=== PATIENT | female | born 1940 | race Caucasian/White ===

== ENCOUNTER 2016-09-10 12:49 | Emergency (ER) | payer OTHER, BC ==
[2016-09-10 13:01] VITALS: TEMP 98; BMI 23.0
--- NOTE | 2016-09-10 13:15 | PDOC ---
History of Present Illness - General History Source: Patient Exam Limitations: No Limitations - History of Present Illness Initial Comments: 09/10/16 13:52 The patient is a 76-year-old female, with a significant past medical history of HTN, who presents to the ED with 2 weeks of shortness of breath and coughing. Pt was placed on ampicillin a month ago for a tooth infection. Pt then developed C diff and was placed on vancomycin; pt has about 20 tablets left. She developed a cough two weeks ago that was productive of brown/bloody sputum. She visited her PCP a week ago and was given a 5-day course of prednisone with no relief of her symptoms. Pt just states that her sputum is now clear and she has about 6-7 episodes a day. The patient denies any fever, chills, nausea, vomiting, diarrhea, or abdominal pain. She denies any headache. No recent travel or sick contacts. PCP: Dr. Ta <Denise Chao - Last Filed: 09/10/16 17:11> <Ander Macias - Last Filed: 09/10/16 17:36> - General Chief Complaint: Shortness of Breath Stated Complaint: SOB Time Seen by Provider: 09/10/16 13:15 Past History <Denise Chao - Last Filed: 09/10/16 17:11> - Past Medical History HTN: Yes - Surgical History Appendectomy: Yes - Psycho/Social/Smoking Cessation Hx Anxiety: No Suicidal Ideation: No Smoking History: Former smoker Have you smoked in the past 12 months: No Information on smoking cessation initiated: No Hx Alcohol Use: No Substance Use Type: None <Ander Macias - Last Filed: 09/10/16 17:36> - Past Medical History Allergies/Adverse Reactions: Allergies Allergy/AdvReac Type Severity Reaction Status Date / Time No Known Allergies Allergy Verified 09/10/16 12:58 Home Medications: Ambulatory Orders Albuterol Sulfate Inhaler - [Ventolin HFA Inhaler -] 1 - 2 inh PO QID #1 inhaler 09/10/16 Levofloxacin [Levaquin -] 500 mg PO DAILY #7 tablet 09/10/16 Methylprednisolone [Medrol Dose [place]] 4 mg PO ASDIR #21 tablet 09/10/16 Review of Systems - Review of Systems Able to Perform ROS?: Yes Comments:: 09/10/16 13:53 GENERAL/CONSTITUTIONAL: No fever or chills. No weakness. HEAD, EYES, EARS, NOSE AND THROAT: No change in vision. No ear pain or discharge. No sore throat. CARDIOVASCULAR: No chest pain. +shortness of breath. RESPIRATORY: No, wheezing, or hemoptysis. +cough SKIN: No rash GASTROINTESTINAL: No nausea, vomiting, diarrhea or constipation. GENITOURINARY: No dysuria, frequency, or change in urination. MUSCULOSKELETAL: No joint or muscle swelling or pain. No neck or back pain. NEUROLOGIC: No headache, vertigo, loss of consciousness, or change in strength/ sensation. ENDOCRINE: No increased thirst. No abnormal weight change. HEMATOLOGIC/LYMPHATIC: No anemia, easy bleeding, or history of blood clots. ALLERGIC/IMMUNOLOGIC: No hives or skin allergy. <Denise Chao - Last Filed: 09/10/16 17:11> *Physical Exam - Vital Signs Last Vital Signs Temp Pulse Resp BP Pulse Ox 98 F 86 19 158/80 97 09/10/16 12:58 09/10/16 12:58 09/10/16 12:58 09/10/16 12:58 09/10/16 12:58 - Physical Exam Comments: 09/10/16 13:54 GENERAL: Awake, alert, and fully oriented, in no acute distress HEAD: No signs of trauma ENT: Auricles normal inspection, hearing grossly normal, nares patent, oropharynx clear EYES: PERRLA, EOMI, sclera anicteric, conjunctiva clear without exudates. Moist mucosa. NECK: Normal ROM, supple, no lymphadenopathy, JVD, or masses LUNGS: Breath sounds equal, clear to auscultation bilaterally. No wheezes, and no crackles HEART: Regular rate and rhythm, normal S1 and S2, no murmurs, rubs or gallops ABDOMEN: Soft, nontender, normoactive bowel sounds. No guarding, no rebound. No masses EXTREMITIES: Normal range of motion, no edema. No clubbing or cyanosis. No cords, erythema, or tenderness NEUROLOGICAL: Cranial nerves II through XII grossly intact. Normal speech, normal gait SKIN: Warm, Dry, normal turgor, no rashes or lesions noted <Denise Chao - Last Filed: 09/10/16 17:11> - Vital Signs Last Vital Signs Temp Pulse Resp BP Pulse Ox 98 F 86 19 158/80 97 09/10/16 12:58 09/10/16 12:58 09/10/16 12:58 09/10/16 12:58 09/10/16 12:58 <Ander Macias - Last Filed: 09/10/16 17:36> ED Treatment Course - LABORATORY CBC & Chemistry Diagram: 09/10/16 13:55 09/10/16 13:55 <Denise Chao - Last Filed: 09/10/16 17:11> - LABORATORY CBC & Chemistry Diagram: 09/10/16 13:55 09/10/16 13:55 <Ander Macias - Last Filed: 09/10/16 17:36> Medical Decision Making - Medical Decision Making 09/10/16 17:01 Dr. Ta was paged and notified via phone service. Case was discussed at 17:[address] Ta agreed to treat the patient as outpatient. He will see the patient tomorrow morning. <Denise Chao - Last Filed: 09/10/16 17:11> *DC/Admit/Observation/Transfer - Attestations Scribe Attestion: 09/10/16 13:55 Documentation prepared by Denise Chao, acting as director medical affairs for Ander Macias MD. <Denise Caho - Last Filed: 09/10/16 17:11> - Discharge Dispostion Admit: No - Attestations Physician Attestion: 09/10/16 13:15 I, Dr. Ander Macias, attest that this document has been prepared under my direction and personally reviewed by me in its entirety. I further attest, that it accurately reflects all work, treatment, procedures and medical decision -making performed by me. <Ander Macias - Last Filed: 09/10/16 17:36> Diagnosis at time of Disposition: Pneumonia Qualifiers: Pneumonia type: due to unspecified organism Laterality: right Lung location: lower lobe of lung Qualified Code(s): J18.1 - Lobar pneumonia, unspecified organism - Discharge Dispostion Disposition: HOME Condition at time of disposition: Good - Prescriptions Prescriptions: Levofloxacin [Levaquin -] 500 mg PO DAILY #7 tablet Methylprednisolone [Medrol Dose [place]] 4 mg PO ASDIR #21 tablet Albuterol Sulfate Inhaler - [Ventolin HFA Inhaler -] 1 - 2 inh PO QID #1 inhaler - Referrals Referrals: Jason Ta MD [Primary Care Provider] - - Patient Instructions Printed Discharge Instructions: Pneumonia-Adult, DI for Pneumonia -- Adult Additional Instructions: Mrs Woo Looks like you have an early pneumonia on your CXR. Your medications were sent to your pharmacy, antibiotic, inhaler and steroid. I did speak to Dr. Long and he will see you on Wednesday and of course you can call him tomorrow if need be. Return to us if worse in any way. I hope you are better soon. Best- Dr. Ander Macias
[2016-09-10] MEDS ORDERED: ALBUTEROL SO4 2.5/IPRATROPIUM 0.5 INH SOL 3 ML VIAL.NEB. NEB ONE ×2 (13:45→14:15)
[2016-09-10] MEDS ORDERED: ALBUTEROL SO4 0.083% IH SOL 2.5 MG/3 ML VIAL.NEB. NEB ONE (13:45)
[2016-09-10 14:29] LABS: BASOPHIL 1.3 % (0-2.0); EOSINOPHIL 3.5 % (0-4.5); MCH 31.1 pg (25.7-33.7); MCHC 33.7 g/dl (32.0-36.0); MEAN CELL VOLUME 92.3 fl (80-96); NEUTROPHILS 55.6 % (42.8-82.8); PLATELET COUNT 317 K/MM3 (134-434); RDW 13.2 % (11.6-15.6); WHITE BLOOD COUNT 8.5 K/mm3 (4.0-10.0)
[2016-09-10 14:40] LABS: INR 0.95 (0.82-1.09); PROTHROMBIN TIME (PATIENT) 10.4 SEC (9.98-11.88)
[2016-09-10 14:53] LABS: ALBUMIN 3.2 g/dl (3.4-5.0); ANION GAP 10 (8-16); CALCIUM 9.3 mg/dL (8.5-10.1); CO2 27 mmol/L (21-32); GLUCOSE,RANDOM 94 mg/dL (74-106)
[2016-09-10 14:58] LABS: ALK PHOS 93 U/L (45-117); BILIRUBIN,TOTAL 0.8 mg/dL (0.2-1.0); CREATININE 0.7 mg/dL (0.55-1.02); SGOT/AST 29 U/L (15-37); SGPT/ALT 31 U/L (12-78); TOT PROT 6.5 g/dl (6.4-8.2)
[2016-09-10 16:24] LABS: ARTERIAL BLD GAS O2 SATURATION 95.9 % (90-98.9); ARTERIAL BLOOD GAS BASE EXCESS 1.6 meq/l (-2-2); ARTERIAL BLOOD GAS HCO3 23.9 meq/L (22-26); ARTERIAL BLOOD GAS PO2 74.6 mmHg (70-100)
[2016-09-10 16:26] LABS: ALLENS TEST POSITIVE; ART PUNCT SITE RIGHT RADIAL; METHEMOGLOBIN 0.5 % (0.4-1.5); PT. ON O2? NO; TYPE OF O2 ROOM AIR
[2016-09-10] MEDS ORDERED: LEVOFLOXACIN 750 MG IVPB 150 ML IVPB ONE ×2 (16:42→17:27)
[2016-09-10 17:01] LABS: ARTERIAL BLOOD GAS pH 7.49 (7.35-7.45)
[2016-09-10 19:47] VITALS: BP 133/74; PULSE 77
== END 2016-09-10 19:40 | disposition home or self-care (01) ==
LOC: JER 12:49
PROC: 3E0F7GC Introduction of Other Therapeutic Substance into Respiratory Tract, Via Natural or Artificial Opening (ICD-10-PCS; principal; 2016-09-10)
PROC: 3E0F7GC Introduction of Other Therapeutic Substance into Respiratory Tract, Via Natural or Artificial Opening (ICD-10-PCS; 2016-09-10)
PROC: 3E03329 Introduction of Other Anti-infective into Peripheral Vein, Percutaneous Approach (ICD-10-PCS; 2016-09-10)
DX: J18.1 Lobar pneumonia, unspecified organism (principal); I10 Essential (primary) hypertension
CPT/HCPCS: 36415; 36600; 71020-TC; 80053; 82375; 82803; 83050; 85025; 85610; 99283-25

== ENCOUNTER 2016-12-11 16:31 | Emergency (ER) | payer OTHER, BC ==
[2016-12-11 16:49] VITALS: BP 156/80; PULSE 76; TEMP 98; BMI 30.9
--- NOTE | 2016-12-11 17:51 | PDOC ---
History of Present Illness - General Chief Complaint: Injury Stated Complaint: injury Time Seen by Provider: 12/11/16 17:41 History Source: Patient Exam Limitations: No Limitations - History of Present Illness Initial Comments: 12/11/16 18:22 Chief complaint: Fall complaining of pain and left hand or wrist with swelling and left rib area anteriorly sent by her primary care provider for History of present illness: Patient is a 76 year old female with a history of hypertension, GERD, her arms stretched out ordered in front of her. Patient reports having pain to her left dorsal hand and wrist with swelling and bruising of dorsal left hand. Patient also reports left anterior rib pain worse with deep breaths or sudden movements. Patient denies any shortness of breath. Patient denies any loss of consciousness or head injury. Patient took Advil at 3 PM. Patient denies any numbness of her left hand or arm. Patient has to left palm. Patient reports being up-to-date with tetanus. 12/11/16 18:25 Occurred: reports: yesterday Severity: reports: moderate Pain Location: reports: other (left anterior lower rib), upper extremity (left wrist/hand, ) Method of Injury: Yes: fall Modifying Factors: improves with: pain medication (advil) Past History - Past Medical History Allergies/Adverse Reactions: Allergies Allergy/AdvReac Type Severity Reaction Status Date / Time No Known Allergies Allergy Verified 12/11/16 16:49 Home Medications: Ambulatory Orders Albuterol Sulfate Inhaler - [Ventolin HFA Inhaler -] 1 - 2 inh PO QID #1 inhaler 09/10/16 Metoprolol Succinate [Toprol Xl] 50 mg PO ASDIR 12/11/16 Ranitidine [Zantac -] 150 mg PO DAILY 12/11/16 Rosuvastatin [Crestor -] 10 mg PO DAILY 12/11/16 HTN: Yes - Surgical History Appendectomy: Yes - Suicide/Smoking/Psychosocial Hx Smoking History: Never smoked Have you smoked in the past 12 months: No Information on smoking cessation initiated: No Hx Alcohol Use: No Drug/Substance Use Hx: No Substance Use Type: None Review of Systems - Review of Systems Able to Perform ROS?: Yes Constitutional: No: Symptoms Reported HEENTM: No: Symptoms Reported Respiratory: No: Symptoms reported Cardiac (ROS): No: Symptoms Reported ABD/GI: No: Symptoms Reported : No: Symptoms Reported Musculoskeletal: Yes: Joint Pain (left wrist, dorsal hand, left anterior lower rib pain ), Joint Swelling (left dorsal hand) Integumentary: Yes: Bruising (left dorsal hand ) Neurological: Yes: Symptoms reported *Physical Exam - Vital Signs Last Vital Signs Temp Pulse Resp BP Pulse Ox 98.0 F 76 18 156/80 100 12/11/16 16:46 12/11/16 16:46 12/11/16 16:46 12/11/16 16:46 12/11/16 16:46 - Physical Exam General Appearance: Yes: Appropriately Dressed Neck: negative: Tender, Rigidity, Tender lateral, Tender midline Respiratory/Chest: positive: Lungs Clear, Normal Breath Sounds. negative: Chest Tender, Respiratory Distress Cardiovascular: positive: Regular Rhythm, Regular Rate, S1, S2 Comments:: 12/11/16 18:15 left radial pulse 4 + Musculoskeletal: positive: Normal Inspection, Other (left anterior proximal ribs ). negative: CVA Tenderness, CVA Tenderness (R), CVA Tenderness (L), Vertebral Tenderness Extremity: positive: Normal Capillary Refill, Tender (left dorsal hand), Swelling (left dorsal hand). negative: Normal Inspection, Normal Range of Motion (slightly decreased range of motion left mcp jt, full range of motion b/ l wrist and all digits) Integumentary: positive: Bruising (left dorsal hand ), Other (abrasion left palm proximal to left 5th mcp jt, left proximal mcp jt) Neurologic: positive: Fully Oriented, Alert, Normal Response, Respond to painful stimul (left hand/wrist ), Responsive. negative: Numbness, Sensory Deficit (hand left ) Procedures - Splinting Splint Location: Left: Hand, Wrist Pre-Proc Neuro Vasc Exam: normal Splint Type: Yes: Long Arm (left boxer ) Post-Proc Neuro Vasc Exam: normal [place] Bandage: 3" Sling: No Complications: No Medical Decision Making - Medical Decision Making 12/11/16 18:25 Patient is a 76 year old female with a history of hypertension, GERD, her arms stretched out ordered in front of her. Patient reports having pain to her left dorsal hand and wrist with swelling and bruising of dorsal left hand. Patient also reports left anterior rib pain worse with deep breaths or sudden movements. Patient denies any shortness of breath. Patient denies any loss of consciousness or head injury. Patient took Advil at 3 PM. Patient denies any numbness of her left hand or arm. Patient has to left palm. Patient reports being up-to-date with tetanus. fall r/o fracture left wrist/hand r/o fracture left anterior ribs PLAN xray left rib series fracture of left fifth sixth and seventh anterior rib noted which may be chronic however patient has point tenderness here do not think this is chronic believe this is acute. Patient otherwise no evidence of acute displaced left rib fracture. xray left wrist/hand fracture of left proximal 5th mcp jt slightly displaced orthoglass boxer's splint applied left hand/wrist follow up with orthopedist on 12/14/16 12/11/16 19:09 12/11/16 19:30 12/11/16 19:43 12/11/16 19:56 *DC/Admit/Observation/Transfer Diagnosis at time of Disposition: Fracture of metacarpal base of left hand, closed Qualifiers: Encounter type: initial encounter Metacarpal bone: fifth Fracture alignment: displaced Qualified Code(s): S62.317A - Displaced fracture of base of fifth metacarpal bone, left hand, initial encounter for closed fracture Left rib fracture Qualifiers: Encounter type: initial encounter Rib fracture type: multiple ribs Fracture type: closed Qualified Code(s): S22.42XA - Multiple fractures of ribs, left side , initial encounter for closed fracture - Discharge Dispostion Disposition: HOME Condition at time of disposition: Stable - Referrals Referrals: Jason Ta MD [Primary Care Provider] - Helio Rodriguez MD [Staff Physician] - - Patient Instructions Additional Instructions: Keep Ortho-Glass splint in place on left hand Apply ice to left hand every hour or 2 while awake for 15 minutes today and tomorrow Take Advil as needed as directed by park landscape architect for pain Return to emergency room if any numbness of left hand or increased pain to the area and any other symptoms develop any shortness of breath You must follow up with orthopedist on 12/14/2016 call the office between 8 am- 9am tell them that you were seen here today Patient voiced understanding of discharge instructions and all questions were answered Thank you for choosing [facility] emergency room for your medical care today
== END 2016-12-11 20:02 | disposition home or self-care (01) ==
LOC: JERFT 16:31
PROC: 2W39X1Z Immobilization of Left Upper Extremity using Splint (ICD-10-PCS; principal; 2016-12-11)
DX: S62.317A Displaced fracture of base of fifth metacarpal bone, left hand, initial encounter for closed fracture (principal); S22.42XA Multiple fractures of ribs, left side, initial encounter for closed fracture; W19.XXXA Unspecified fall, initial encounter; Y93.89 Activity, other specified; Y92.89 Other specified places as the place of occurrence of the external cause; Y99.8 Other external cause status; I10 Essential (primary) hypertension; K21.9 Gastro-esophageal reflux disease without esophagitis
CPT/HCPCS: 71101-TC; 73110-TC-LT; 73130-TC-LT; 99282-25

== ENCOUNTER 2024-02-10 11:17 | Emergency (ER) | payer OTHER, BC ==
[2024-02-10 12:37] VITALS: BP 133/77; PULSE 90; RESP 18; TEMP 98; BMI 22.3
[2024-02-10] MEDS ORDERED: LORATADINE 10 MG TABLET PO ONE (13:16)
[2024-02-10] MEDS ORDERED: BACITRACIN ZINC 15 GM TUBE TOPICAL OINTMENT ONE (13:30)
[2024-02-10] MEDS: MUPIROCIN 2% TOPICAL OINTMENT 22 GM TUBE TP SCH (13:47)
== END 2024-02-10 13:53 | disposition home or self-care (01) ==
LOC: JER 11:17
DX: R21 Rash and other nonspecific skin eruption (principal); L01.00 Impetigo, unspecified; L29.9 Pruritus, unspecified
CPT/HCPCS: 99283-25